=== PATIENT | female | born 1975 | race Caucasian/White ===

== ENCOUNTER 2020-01-18 15:18 | Outpatient (CLI) | payer OTHER ==
[2020-01-18 16:42] VITALS: BP 109/82
--- NOTE | 2020-01-18 16:42 | SLEEP CARE CONSULTATION ---
Information from patient questionnaire entered by Zuleika Torres. I have reviewed and concur with the information entered by Zuleika Torres. This document represents the service I personally performed and the decisions made by me, Daja Daniel ARNP. History of Present Illness Service Date and Time: 01/18/2020 1518 Reason for Visit: New patient Chief Complaint: reports: Unrefreshed sleep (feels tired all the time), Snoring, Excessive daytime sleepiness, Observed pauses in breathing, Fatigue, Frequent awakenings at night. denies: Insomnia Duration of Symptoms: 2 years plus Usual bedtime: 10 pm Time it takes to fall asleep: 20-30 mins Snores at night: Yes Observed to quit breathing while asleep: Yes Sleeps alone due to snoring: No Number of times waking at night: 5 plus Reasons for waking at night: reports: Snoring, Pain (chronic back pain), Bathr oom (sometimes). denies: Choking, Gasping for air Toss, Turn, or Twitch while sleeping: Yes (toss and turn) Recalls having dreams: Yes (not always) Usually gets out of bed at: 8 - 9 am Feels refreshed in the morning: No Morning headache: No Sleepy or fatigued during the day: Yes Ever fallen asleep while driving: No Takes day naps: Yes (sometimes, for an hour) Dreams during day naps: No Prior sleep studies: No Additional HPI information: is on CPAP and has observed her to stop breathing, she is snoring loudly and is always tired. She has gained 70 pounds in the last 5 years and states she weighs more than she ever has, even when . She does have a history of depression for which she has been on some medications that has caused her to gain weight. - Parasomnia Symptoms Ever been unable to move upon waking from sleep: No Walks in sleep: No Talks in sleep: No Ever acted out dreams in sleep: No Ever felt weak in the knees when startled or emotional: Yes Bothered by creepy, crawly, restless sensations in legs: No Problems with memory or concentration: Yes (not remember things from past, alway has had this) Subjective Initial [place] Sleepiness Scale score: 8 (in 2019) Past Medical History Past Medical History: reports: Fibromyalgia, Anxiety, Depression, Other (chronic back pain). 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 Patient is and lives in [place]. Have you smoked in the past 12 months: Yes Cigarettes per day (20/pack): 30 Years of smokin Smoking Pack Years: 45.0 Alcohol use: No Caffeine use: Yes Caffeine amount and frequency: 2-3 cups daily Family History Family history of sleep disordered breathing: Yes (mom) Family Hx Sleep Apnea: Mother: Snoring, Sleep apnea - Untreated, Father: Snoring, Sibling: Snoring Allergies and Home Medications Drug allergies reviewed: Yes (NKDA) Allergy and home medication list: desvenlafaxine Suc ER 50 mg/mirtazapine 15 mg - 1/2 tablet night for her depression and to sleep cyclobenzaprine 10 mg x 2 nightly alprazolam 0.5 mg prn 4 times daily oxycodone 10 mg 8 per day for chronic back pain Be Epic morning tab and night to help with digestion sleep (started last week) Calcium Magnesium Vitamin B, C, D3, A and Fish oil supplements Review of Systems Weight gain over past 5 years: 70 Cardiovascular: denies: high blood pressure, palpitations, chest pain, irregular heart rate or pulse, leg or foot swelling, have to sleep sitting up Respiratory: reports: wheeze. denies: shortness of breath, chronic cough Gastrointestinal: denies: heartburn, difficulty swallowing, abdominal pain Urinary: denies: incontinence, frequency, urgency, impotence, other Neurological: denies: headaches, seizure, head trauma, disorientation, speech dysfunction, gait or balance problems Psychiatric: reports: anxiety, depression. denies: Attention Deficit Hyperactivity, mood disorder Ear/Nose/Throat: reports: dry mouth/throat (dry mouth sometimes), wisdom teeth removed. denies: nasal congestion, sinus problems, nose bleeds, hoarseness, injury to nose, tonsillectomy Endocrine: reports: sluggishness. denies: thyroid disease, too hot or cold, excessive thirst, increased appetite Musculoskeletal: reports: joint pain, neck pain, back pain Immunologic: reports: allergies to food or environment (seasonal, come and go). denies: sneezing, rash, itching Physical Exam Blood Pressure: 109/82 Cuff size: long Heart Rate: 92 O2 Saturation: 95 Height: 5 ft 6 in Weight: 208 lb Body Mass Index: 33.5 BMI Classification: Obese Neck circumference: 14 (inches) HEENT: No craniofacial malformation Nostrils: patent to airflow Turbinates: normal Septum: midline Mouth and throat: normal Soft palate: normal Hard palate: normal Uvula: normal Uvula visualization: 100% Mallampati Class I Tongue: normal in size Tonsils: 1+ Chin and jaw: normal size and position Neck: normal w/o lymphadenopathy or thyromegaly Heart: regular rate and rhythm Lungs: clear bilaterally Impression and Plan 1. Suspected Obstructive Sleep Apnea-Hypopnea Syndrome, as suggested by a history of loud and irregular snoring, observed cessation of breath while asleep by her , frequent awakening during the night, unrefreshed sleep most nights, cognitive impairment with memory loss, and excessive daytime sleepiness. 2. Obesity. Patient has gained weight. Currently patients BMI is 33.5. Obesity increases the risk of apnea, CPAP pressure requirements and overall health risks especially cardiovascular. Thus patient is advised to continue to lose weight. The BMI chart was reviewed. I recommend proceeding to polysomnography to confirm the diagnosis and to assess severity. If the patient has significant sleep disordered breathing, a manual CPAP titration study will also be performed to find the optimal treatment pressure. I informed the patient of what the sleep studies involve and after some discussion, obtained agreement to proceed. The pathophysiology of obstructive sleep apnea-hypopnea syndrome was discussed with the patient and health risks of cardiovascular and cerebrovascular disease if not treated. AASM brochure for obstructive sleep apnea-hypopnea syndrome given and reviewed. Risks of drowsy driving discussed in detail and patient advised to avoid long distance driving and to machine tack puller at the first sign of drowsiness. Patient agreed to plan. * Schedule polysomnography +- manual CPAP titration study and return in 1-2 weeks after the study to discuss result and initiate therapy. * Avoid long distance driving or driving when feeling sleepy. * Attempt to lose weight. * Review instructions provided by trained office staff on how to prepare for the sleep study. * Return for follow-up after sleep study completed. Visit Type: In Office Time Spent with Patient (minutes): 26 Provider Statement: I spent 100% of the Face to Face Visit with the patient with greater than 50% spent counseling the patient and coordination of care.
== END 2020-01-18 15:19 | disposition home or self-care (01) ==
LOC: SC 15:18
PROVIDERS: ATTEND Nurse Practitioner Family
DX: G47.10 Hypersomnia, unspecified (principal); R06.81 Apnea, not elsewhere classified; G47.8 Other sleep disorders; R41.89 Other symptoms and signs involving cognitive functions and awareness; R06.83 Snoring; E66.9 Obesity, unspecified; Z68.33 Body mass index [BMI] 33.0-33.9, adult; F17.210 Nicotine dependence, cigarettes, uncomplicated
CPT/HCPCS: 99204; 99212

== ENCOUNTER → 2020-02-23 | Outpatient (CLI) | payer OTHER | LOC: SC 19:30 | PROVIDERS: ATTEND Internal Medicine Pulmonary Disease | DX: G47.33 Obstructive sleep apnea (adult) (pediatric) (principal); E66.9 Obesity, unspecified; Z68.33 Body mass index [BMI] 33.0-33.9, adult | CPT/HCPCS: 95806 ==

== ENCOUNTER 2020-03-16 16:41 | Outpatient (CLI) | payer OTHER ==
--- NOTE | 2020-03-16 17:01 | SLEEP CARE CONSULTATION ---
Information from patient questionnaire entered by Janina Jin. I have reviewed and concur with the information entered by Janina Jin. This document represents the service I personally performed and the decisions made by , Daja Daniel ARNP. History of Present Illness Service Date and Time: 03/16/2020 164 Initial [place] Sleepiness Scale score: 8 (in 2019) Current [place] Sleepiness Scale score: 6 Additional HPI information: MAGDALENA DOUGLASS returns for follow up and results of the recently performed home sleep study. The patient was informed of the following findings: Her HST was negative for significant sleep disordered breathing. I explained the pathophysiology behind obstructive sleep apnea. Patient does not have sleep apnea and was advised how weight gain could increase the risk of developing sleep apnea in the future. I strongly encouraged the patient to lose weight. Patient has light to moderate snoring. Snoring can be reduced by weight loss. Weight loss is best achieved with diet consult. Patient instructed to contact PCP for referral. Snoring can also be treated with an oral appliance from a dentist. Advised to check insurance coverage. In addition, an ENT evaluation can be do to see if other treatment is indicated. Patient counseled not drink alcohol less than 4 hours before bedtime as it can increase snoring and apnea. Patient was cautioned about risks of drowsy driving until sleepiness symptoms resolve. Patient denies drowsy driving. Sleep Study - Results Type of Sleep Study: Home sleep study Prior sleep studies: No Polysomnography/Home Sleep Study results: SLEEP TIME AND EFFICIENCY: The sleep study recording began at 08:52:07 PM and ended at 06:49:20 AM. Total recording time was 597.2 minutes. The total sleep time was 516.0 minutes. The sleep efficiency was 86.4 percent. The patient spent 387.2 minutes supine, and spent 128.8 minutes non-supine. The p atients own estimate of sleep time was 10.00 hours. RESPIRATORY DATA: The AHI in this report is indexed to sleep time based on actigraphy. The AASM defines this as ZULEMA. The AHI on this type 3 Home Sleep Study may understate the AHI determined on a type 1 or 2 study, since EEG is not monitored resulting in the inability to score non-desaturating hypopneas. Based on 4% Calculation: The AHI4% calculation of 3.5 per hour of recording time was based on a total of 10 scored apneas and 20 scored hypopneas with 4% desaturations. Supine AHI4%: 3.4 per hour. Non-supine AHI4%: 3.7 per hour. Oxygen Summary: Patient's baseline O2 saturation was 97.4 %. The patient spent 1.6 minutes at an oxygen saturation less than 90%, and 0.2 minutes less than 85%. The desaturation index was 2.9 events per hour sleep time. The lowest saturation was 81.4 %. SNORING: The percent of the study time spent snoring was 68.0 %. The Snoring Count was 8332 . The Snoring Index was 968.8 . PULSE RATE REVIEW: The mean heart rate was 81 beats per minute. The rate ranged from a low of 47 to a high of 96 beats per minute. DIAGNOSIS CODE: suspected Obstructive Sleep Apnea (ICD-10 G47.30) Allergies and Home Medications Drug allergies reviewed: Yes (NKDA) Home medication list reviewed: Yes (Buproprion started and stopped desvenlafaxine) Review of Systems Review of systems same as previous: Yes (no changes) Physical Exam Heart Rate: 74 O2 Saturation: 98 Height: 5 ft 5 in Weight: 197 lb Body Mass Index: 32.8 BMI Classification: Obese Impression and Plan Snoring but no significant sleep disordered breathing. Patient advised that of ten weight loss will reduce snoring as well as apnea risk. An oral appliance can also be used for snoring. This would require a dental consultation. Patient cautioned not to use other online appliances as can cause bite issues. A list of accredited dentists in area and one local dentist who makes oral appliances given. Patient is advised to check if insurance will cover. An ENT consult can also be helpful to determine if any other treatment is an option. * Attempt to lose weight * Avoid alcohol consumption near bedtime * The patient is cautioned about driving until sleepiness is completely resol olivier. * Return as needed with worsening of sleepiness symptoms. Visit Type: In Office Time Spent with Patient (minutes): 15 Provider Statement: I spent 100% of the Face to Face Visit with the patient with greater than 50% spent counseling the patient and coordination of care.
== END 2020-03-16 16:42 | disposition home or self-care (01) ==
LOC: SC 16:41
PROVIDERS: ATTEND Nurse Practitioner Family
DX: R06.83 Snoring (principal); E66.9 Obesity, unspecified; Z68.32 Body mass index [BMI] 32.0-32.9, adult; R06.81 Apnea, not elsewhere classified; R53.83 Other fatigue; G47.8 Other sleep disorders
CPT/HCPCS: 99212; 99213

== ENCOUNTER 2020-04-15 17:58 | Outpatient (CLI) | payer OTHER ==
--- NOTE | 2020-04-15 20:00 | Ultrasound Report ---
PROCEDURE: Pelvic w/Transvaginal INDICATIONS: PELVIC PAIN TECHNIQUE: Real-time scanning was performed of the pelvic organs, with image documentation. Additional endovagi nal scanning was necessary due to incomplete visualization of the adnexal and endometrial structures by transabdominal scanning. COMPARISON: MRI lumbar spine 08/05/2015. FINDINGS: Transabdominal scanning: No pathologic free abdominal or pelvic fluid. Endovaginal scanning: Uterus: Uterus is anteverted normal in size at 8.6 x 5.6 x 4.6 cm. Question of arcuate uterus. Right anterior intramural fibroid measuring 1.8 x 1.7 x 1.2 cm. The endometrium measures 12 mm in combined thickness. Hypoechoic region with internal echoes measuring 1.8 x 1.5 x 1.4 cm in the region of the uterine cervix. There is posterior acoustic enhancement. No internal vascularity. Ovaries: Within normal limits. Blood flow seen in both ovaries. Right ovary measures 3.1 x 2.8 x 1.9 cm, volume of 9 cc. Crenulated appearing right ovarian cyst khai uring 1.7 x 1.5 x 1.5 cm. No internal vascularity. Left ovary measures 2.3 x 1.8 x 1.2 cm, volume of 3 cc. Small follicles or within septated cyst. IMPRESSION: 1. Ovaries are within normal limits. Suspect small right ovarian hemorrhagic cyst measuring 1.7 cm. N o free fluid. 2. Endometrial thickness measures 4 mm. 3. Small intramural fibroid. 4. Hypoechoic cyst within the cervix measuring 1.8 cm. No internal vascularity. This has an atypical appearance for nabothian cysts. -Recommend follow-up pelvic ultrasound in 6-12 weeks. Reviewed by: Evelio Navas MD on 04/15/2020 7:59 PM PDT Approved by: Evelio Navas MD on 04/15/2020 7:59 PM PDT Station ID: [id number]
== END 2020-04-15 17:59 | disposition home or self-care (01) ==
LOC: DI 17:58
PROVIDERS: ATTEND Family Medicine
DX: D25.1 Intramural leiomyoma of uterus (principal); N88.8 Other specified noninflammatory disorders of cervix uteri
CPT/HCPCS: 76830; 76856; 93976

== ENCOUNTER 2020-05-24 16:50 | Outpatient (CLI) | payer OTHER | END 2020-05-24 16:51 | disposition home or self-care (01) | LOC: COV 16:50 | PROVIDERS: ATTEND Family Medicine | DX: R05 Cough (principal); R68.83 Chills (without fever); Z20.828 Contact with and (suspected) exposure to other viral communicable diseases ==

== ENCOUNTER 2020-06-10 14:32 | Outpatient (CLI) | payer OTHER ==
--- NOTE | 2020-06-10 20:28 | Ultrasound Report ---
PROCEDURE: Pelvic w/Transvaginal INDICATIONS: RT OVARIAN CYST. LMP 05/21/2020. TECHNIQUE: Real-time scanning was performed of the pelvic organs, with image documentation. Additional endovagi nal scanning was necessary due to incomplete visualization of the adnexal and endometrial structures by transabdominal scanning. COMPARISON: Pelvic ultrasound 04/15/2020.. FINDINGS: Transabdominal scanning: Limited scanning through the kidneys shows no hydronephrosis. No pathologi c free abdominal or pelvic fluid. Endovaginal scanning: Uterus: Uterus is anteverted and normal in size at 8.6 x 6 x 4.6 cm. No fibroids identified on today 's exam. The endometrium measures 12 mm in combined thickness. Cervical cysts. The largest on the rig ht measuring 2 x 1.7 x 1.5 cm; (previously measured 1.8 x 1.5 x 1.4 cm). There is internal debris. No internal blood flow seen. Ovaries: Right ovary measures 2.7 x 2.5 x 2.3 cm, volume of 8 cc. -Heterogeneous hypoechoic right ovarian cyst measuring 1.9 x 1.3 x 1 cm, volume of 1.3 cc. There is p eripheral vascularity. (Previously measured 1.7 x 1.5 x 1.5 cm, volume of 2 cc). Left ovary measures 2.3 x 2 x 1.3 cm, volume of 3 cc. IMPRESSION: 1. Right ovarian hypoechoic mildly complex cyst measuring 1.9 cm appears slightly decrease in size. 2. Mildly complex cervical cyst measuring 2 cm is not felt to be significantly changed. No internal v ascularity. Diagnostic considerations include nabothian cyst and mucinous neoplasm. -Recommend correlation with prior Pap smear. -Recommend follow-up pelvic ultrasound in approximately 6 months. If the patient reports abnormal dis charge consider pelvic ultrasound with IV contrast for further evaluation. Reviewed by: Evelio Navas MD on 06/10/2020 7:[address] [facility] Approved by: Evelio Navas MD on 06/10/2020 7:[address] [facility] Station ID: [id number]
== END 2020-06-10 14:33 | disposition home or self-care (01) ==
LOC: DI 14:32
PROVIDERS: ATTEND Family Medicine
DX: N83.201 Unspecified ovarian cyst, right side (principal); N88.8 Other specified noninflammatory disorders of cervix uteri

== ENCOUNTER 2020-06-19 11:34 | Outpatient (CLI) | payer OTHER ==
--- NOTE | 2020-06-19 14:45 | Ultrasound Report ---
LIMITED ULTRASOUND OF RIGHT BREAST: 06/19/2020 CLINICAL: Palpable right breast lump. Comparison is made to exams dated: 08/25/2015 mammogram, 03/13/2011 mammogram, and 03/13/2011 [facility]. Ultrasound of the right breast 3 o'clock and 9 o'clock regions was performed. There is a benign 0.6 cm x 0.3 cm x 0.6 cm oval cyst in the right breast at 9 o'clock posterior depth . This oval cyst is anechoic with an abrupt boundary and posterior acoustic enhancement. This corre lates with mammography findings. Color flow imaging demonstrates that there is no increase in vascularity. No abnormality which corresponds with the clinical area of concern is seen. IMPRESSION: BENIGN There is no sonographic evidence of malignancy. The 0.6 cm x 0.3 cm x 0.6 cm oval cyst in the right breast is consistent with a simple cyst and is be nign. There is no abnormality seen in the right breast to correspond with the area of clinical concern at 9 o'clock which is consistent with normal fibroglandular tissue, however, clinical followup is recomme nded. Return to annual mammogram screening schedule is recommended. This exam was interpreted at Station ID: [id number]. Electronically Signed By: Tejinder Melara acr/:06/19/2020 12:54:07 Ultrasound BI-RADS: 2 Benign BI-RADS CATEGORY: (2) - 2 RECOMMENDATION: (ANNUAL) - Recommend routine annual screening mammography. [id number] return to screening LATERALITY: (B)
--- NOTE | 2020-06-19 14:45 | Mammography Report ---
BILATERAL DIGITAL DIAGNOSTIC MAMMOGRAM 3D/2D: 06/19/2020 CLINICAL: Palpable right breast lump. Comparison is made to exams dated: 08/25/2015 mammogram and 03/13/2011 mammogram - Located within [facility]. The tissue of both breasts is heterogeneously dense. This may lower the sensitivity of mammography. There is a new 0.5 cm x 0.7 cm oval mass in the right breast posterior depth lateral region seen on t he craniocaudal view only. No other significant masses, calcifications, or other findings are seen in either breast. IMPRESSION: INCOMPLETE: NEEDS ADDITIONAL IMAGING EVALUATION The new 0.5 cm x 0.7 cm oval mass in the right breast resembles a cyst, a lymph node, or an intramamm loenor node and is indeterminate. An ultrasound is recommended. There are no abnormalities seen in the right breast to correspond with the areas of clinical concern at 4 and 5 o'clock which is consistent with normal fibroglandular tissue, however, ultrasound is lisa mmended. This exam was interpreted at Station ID: [id number]. NOTE: For mammograms, a report in lay terms will be sent to the patient. Approximately 15% of breast malignancies will not be visualized mammographically. In the management of a palpable breast mass, a negative mammogram must not discourage biopsy of a clinically suspicious lesion. Electronically Signed By: Tejinder Melara acr/:06/19/2020 12:20:58 ACR BI-RADS Category 0: Incomplete [id number] PARENCHYMAL PATTERN: (D) - The breast(s) demonstrate(s) heterogeneously dense fibroglandular ewelina sood. BI-RADS CATEGORY: (0) - 0 Ultrasound [id number] Immediate follow-up LATERALITY: (B)
== END 2020-06-19 11:35 | disposition home or self-care (01) ==
LOC: DI 11:34
PROVIDERS: ATTEND Family Medicine
DX: N60.01 Solitary cyst of right breast (principal)

== ENCOUNTER 2020-08-25 18:45 | Outpatient (CLI) | payer OTHER ==
--- NOTE | 2020-08-26 10:37 | Ultrasound Report ---
PROCEDURE: Pelvic w/Transvaginal INDICATIONS: PELVIC PAIN, RT OVARIAN CYST TECHNIQUE: Real-time scanning was performed of the pelvic organs, with image documentation. Additional endovagi nal scanning was necessary due to incomplete visualization of the adnexal and endometrial structures by transabdominal scanning. COMPARISON: 06/10/2020, 04/12/2020 FINDINGS: No pathologic free abdominal or pelvic fluid. Uterus: Uterus is normal in size at 8.9 x 4.7 x 6.4 cm. The endometrium measures 8 mm in combined t hickness. The uterus demonstrates a mildly arcuate configuration. There is a complex nabothian cyst seen that measures up to 2 cm. Ovaries: The right ovary measures 3.1 x 2.9 x 2.2 cm. Within the right ovary, there is a complex cys t that measures up to 2.4 cm, which previously measured up to 1.9 cm. Surrounding increased vascular flow can be seen. The left ovary measures 2 x 1.8 x 1.7 cm and demonstrates an unremarkable sonographic appearance. IMPRESSION: Complex right ovarian cyst seen, which has increased in size compared to the prior examination. If c linically appropriate, please consider a short-term follow-up ultrasound in 6 weeks to ensure resolut ion/improvement. Complex nabothian cyst again seen. Reviewed by: Meet Brandon MD on 08/26/2020 9:36 AM [facility] Approved by: Meet Brandon MD on 08/26/2020 9:36 AM [facility] Station ID: [id number]
== END 2020-08-25 18:46 | disposition home or self-care (01) ==
LOC: DI 18:45
PROVIDERS: ATTEND Family Medicine
DX: N83.201 Unspecified ovarian cyst, right side (principal); N88.8 Other specified noninflammatory disorders of cervix uteri; R10.2 Pelvic and perineal pain

== ENCOUNTER 2020-09-29 18:58 | Outpatient (CLI) | payer OTHER ==
--- NOTE | 2020-09-30 01:20 | Ultrasound Report ---
PROCEDURE: Pelvic w/Transvaginal INDICATIONS: RT OVARIAN CYST TECHNIQUE: Real-time scanning was performed of the pelvic organs, with image documentation. Additional endovagi nal scanning was necessary due to incomplete visualization of the adnexal and endometrial structures by transabdominal scanning. COMPARISON: 08/25/2020, 06/10/2020, 04/15/2020. FINDINGS: No pathologic free abdominal or pelvic fluid. Uterus: Uterus is anteverted and measures 6.7 x 4.5 x 5.3 cm. The endometrium measures up to 0.5 cm in combined thickness. There is a hypoechoic nabothian cyst in the cervix measuring up to 1.7 x 1.3 x 1.7 cm with internal echoes and posterior acoustic enhancement. No internal vascularity on color Dop pler interrogation. Findings appears similar in size to the prior studies. Ovaries: The right ovary measures 2.1 x 1.4 x 1.9 cm and the left ovary measures 2.6 x 2 x 2.9 cm. W ithin the right ovary, there is an oval heterogeneous lesion measuring approximately 1.5 x 1.1 x 1.0 cm, decreased in size from the prior study with an isoechoic thick wall and hypoechoic central compon ent. There is suggestion of posterior acoustic enhancement. No internal vascularity on color Doppler interrogation. IMPRESSION: 1. Thick-walled complex right ovarian cystic structure appears slightly decreased in size from the pr ior study. The finding is nonspecific but given persistence over serial studies is unlikely to repres ent a physiologic corpus luteal cyst. Consider follow-up pelvic MRI for further evaluation or continu ed ultrasound follow-up in 3 months to demonstrate stability or resolution. 2. Complex nabothian cyst appears similar in size to the prior study. Reviewed by: Jose Roberto Grande MD on 09/30/2020 1:18 AM PDT Approved by: Jose Roberto Grande MD on 09/30/2020 1:18 AM PDT Station ID: [id number]
== END 2020-09-29 18:59 | disposition home or self-care (01) ==
LOC: DI 18:58
PROVIDERS: ATTEND Family Medicine
DX: N83.201 Unspecified ovarian cyst, right side (principal); N88.8 Other specified noninflammatory disorders of cervix uteri